=== PATIENT | female | born 1990 | race Caucasian/White ===

== ENCOUNTER → 2018-07-05 12:50 | Outpatient (CLI) | payer OTHER, SELFPAY ==
[2017-03-25 08:30] VITALS: BMI 30.5
--- NOTE | 2018-07-05 12:54 | ECHOD_ITS ---
Reason For Study: Irregular heart beat Procedure This was a 2D Doppler, Color Flow transthoracic echocardiogram. Exam performed in department. Left Ventricle Normal size and thickness. The estimated ejection fraction is 65 %. Normal diastology for age. No regional wall motion abnormalities noted. Right Ventricle Normal size and thickness. Normal systolic function. Atria Normal left atrium. Normal right atrium. Normal atrial septum. Mitral Valve The mitral valve is structurally normal. No prolapse or stenosis seen. Tricuspid Valve Normal tricuspid valve. Trivial tricuspid valve insufficiency. Right ventricular systolic pressure estimated to be 22 mmHg. Aortic Valve Normal aortic valve. Trisinus/trileaflet aortic valve. Pulmonic Valve Normal pulmonic valve. Great Vessels Normal aortic root. Normal arch. Normal inferior vena cava. Inferior vena cava collapse with sniff. Pericardium/Pleural No pericardial effusion. MMode/2D Measurements & Calculations LVIDd: 4.6 cm IVSd: 0.96 cm Ao root diam: 2.2 cm LVIDs: 2.7 cm LVPWd: 0.75 cm RVDd: 3.0 cm FS: 40.2 % LAV(MOD-bp): 25.9 ml LVAd ap4: 25.8 cm2 SV(MOD-sp4): 48.6 ml LAV(MOD-bp) Indexed: 13.2 ml/m2 EDV(MOD-sp4): 74.9 ml LAV(MOD-sp2): 30.8 ml EDV(sp4-el): 75.6 ml LAV(MOD-sp4): 20.2 ml LVAs ap4: 13.7 cm2 ESV(MOD-sp4): 26.3 ml ESV(sp4-el): 27.0 ml EF(MOD-sp4): 64.8 % EF(sp4-el): 64.3 % SV(sp4-el): 48.6 ml LA A4 area: 10.9 cm2 LA dimension(2D): 3.2 cm RA A4 area: 9.6 cm2 Doppler Measurements & Calculations MV E max ethan: 114.3 cm/sec Lat Peak E' Ethan: 13.2 cm/sec Med Peak E' Ethan: 12.5 cm/sec MV A max ethan: 63.1 cm/sec E/E' lat: 8.6 E/E' med: 9.2 MV E/A: 1.8 Ao V2 max: 161.0 cm/sec LV V1 max: 146.2 cm/sec PA V2 max: 126.8 cm/sec Ao max P.4 mmHg LV V1 max P.6 mmHg Ao V2 mean: 115.8 cm/sec Ao mean P.9 mmHg Ao V2 VTI: 31.8 cm TR max ethan: 216.8 cm/sec TR max P.8 mmHg Interpretation Summary The estimated ejection fraction is 65 %. Normal diastology for age. Trivial tricuspid valve insufficiency. Right ventricular systolic pressure estimated to be 22 mmHg. There is no comparison study available. Ordering Physician: Michael Wharton Referring Physician: Michael Wharton Performed By: Deisy Flores, JUAN, RVT
== END ==
PROVIDERS: Family Provider Family Medicine; PCP Family Medicine; Referring Provider Family Medicine; Visit Provider Family Medicine
DX: I49.9 Cardiac arrhythmia, unspecified (principal); I42.9 Cardiomyopathy, unspecified; Z14.8 Genetic carrier of other disease
CPT/HCPCS: 93306

== ENCOUNTER → 2018-07-11 11:11 | Outpatient (CLI) | payer OTHER, SELFPAY ==
[2018-07-11 10:20] VITALS: BMI 30.8
[2018-07-11 11:54] LABS: Absolute Lymphocyte Count 1.51 X10^3/ul (0.83-4.51); Basophil# 0.02 X10^3/uL; Basophil% 0.3 % (0-1); Eosinophil# 0.05 X10^3/uL; Eosinophils% 0.7 % (0-5); Hematocrit 40.8 % (37-47); Hemoglobin 13.3 g/dl (12.0-15.0); Lymphocyte # 1.51 X10^3/ul (4.0); Lymphocyte % 21.6 % (19-41); Mean Corp Hgb Conc 32.6 g/gl (32-36); Mean Corpuscular Hgb 28.1 pg (27.0-32.0); Mean Corpuscular Volume 86.3 fL (81-99); Mean Platelet Vol. 10.9 fl (6.2-12.0); Monocyte# 0.43 X10^3/uL; Monocyte% 6.2 % (0-10); Neutrophil # 4.97 X10^3/uL (2.7-7.7); Neutrophil % 71.1 % (47-70); Platelet Count 235 K/mm3 (150-450); RBC Distribution Width CV 12.5 % (11.6-14.6); RBC Distribution Width SD 38.8 fl (35.1-43.9); Red Blood Count 4.73 M/mm3 (4.2-5.4)
[2018-07-11 11:55] LABS: POSITIVE COUNT NO; POSITIVE DIFFERENTIAL NO; POSITIVE MORPHOLOGY NO
[2018-07-11 12:25] LABS: Pregnancy, Serum, hCG Quali. NEGATIVE Negative (0-9 Nonpreg)
[2018-07-11 12:29] LABS: AST(SGOT) 10 U/L (15-37); Alanine Aminotransfer ALT/SGPT 23 U/L (13-56); Albumin, Serum 3.9 g/dL (3.2-5.0); Alkaline Phosphatase 69 U/L (45-117); Anion Gap 8 (5-15); BUN 10 mg/dL (7-18); BUN/Creat Ratio 11.5 RATIO (10-20); Bilirubin, Direct 0.12 mg/dL (0.00-0.30); Chloride 106 mmol/L (98-107); Cholesterol 245 mg/dL (200); Creatinine, Serum 0.87 mg/dL (0.55-1.02); EST Glomerular Filtration Rate 83 mL/min (>60); Est Glom Filt Rate - Afr Amer 101 mL/min (>60); Globulin 3.9 g/dL (2.2-4.2); Glucose 89 mg/dL (74-106); High Density Lipoprotein 46 mg/dL; Potassium 3.9 mmol/L (3.5-5.1); Protein, Total 7.8 g/dL (6.4-8.2); Sodium Level 142 mmol/L (136-145); T4 Total, Thyroxin 8.7 ug/dL (4.8-13.9); Triglycerides 72 mg/dL; Very Low Density Lipoprotein 14 mg/dL (5-40)
== END ==
PROVIDERS: Family Provider Family Medicine; PCP Family Medicine; Referring Provider Internal Medicine Cardiovascular Disease; Visit Provider Internal Medicine Cardiovascular Disease
DX: R00.2 Palpitations (principal); R06.09 Other forms of dyspnea; I45.2 Bifascicular block; I49.9 Cardiac arrhythmia, unspecified; R94.31 Abnormal electrocardiogram [ECG] [EKG]; Z13.220 Encounter for screening for lipoid disorders; Z82.49 Family history of ischemic heart disease and other diseases of the circulatory system
CPT/HCPCS: 36415; 80048; 80061; 80076; 83735; 84436; 84443; 84703; 85025

== ENCOUNTER → 2018-08-03 09:31 | Outpatient (CLI) | payer SELFPAY ==
[2018-07-11 10:20] VITALS: BMI 30.8
--- NOTE | 2018-08-03 09:33 | STE_ITS ---
Reason For Study: PALPITATIONS, TACHYCARDIA Stress Results Protocol: Stress Echocardiogram Maximum Predicted HR: 194 bpm Target HR: 165 bpm % Maximum Predicted HR: 92 % DurationHeart Rate Stage (mm:ss) (bpm) BP Comment BASELINE 84 120/68 EMILIANO PROTOCOL- STAGE 1 3:00 126 118/70 EMILIANO PROTOCOL- STAGE 2 3:00 160 128/84 EMILIANO PROTOCOL- STAGE 3 1:31 178 / SL SOB, LEGS WEAK RECOVERY 102 108/74 Stress Duration: 7:31 mm:ss Maximum Stress HR: 178 bpm Baseline Echocardiogram Findings The estimated ejection fraction is 65 %. Stress Echo Wall motion Data Resting WM Intermediate WM Stress WM Resting Wall Motion Wall Motion Stress No regional wall motion No regional wall motion abnormalities noted. abnormalities noted. EKG Data The baseline ECG displays normal sinus rhythm. The patient exercised according to the regular Emiliano protocol for a total duration of 7:31. The maximum heart rate attained was 151 beats per minute. This was 77% of maximum predicted heart rate. The patient exercised into stage 3 of the Emiliano protocol. During stress, there were no ST or T wave changes noted to suggest ischemia. No clinical angina was noted. No arrhythmias noted. Interpretation Summary The estimated ejection fraction is 65 %. Normal, adequate, treadmill echocardiogram. Negative for ischemia by EKG and echocardiographic anterior. No anginal symptoms noted. No arrhythmias noted. Appropriate blood pressure response to exercise. Below average exercise capacity for age. Final LVEF is 75%. Test terminated due to leg fatigue. Ordering Physician: Chidi Taylor Referring Physician: Chidi Taylor Performed By: [place] Heredia, JUAN, RVT
== END ==
PROVIDERS: Family Provider Family Medicine; PCP Family Medicine; Referring Provider Internal Medicine Cardiovascular Disease; Visit Provider Internal Medicine Cardiovascular Disease
DX: I45.2 Bifascicular block (principal); I49.9 Cardiac arrhythmia, unspecified; R00.2 Palpitations; R06.09 Other forms of dyspnea; R94.31 Abnormal electrocardiogram [ECG] [EKG]; Z82.49 Family history of ischemic heart disease and other diseases of the circulatory system
CPT/HCPCS: 93017; 93350

== ENCOUNTER → 2018-08-03 | Outpatient (REF) | payer OTHER, SELFPAY ==
[2018-07-11 10:20] VITALS: BMI 30.8
== END | disposition home or self-care (01) ==
LOC: CVS 09:33
PROVIDERS: Family Provider Family Medicine; PCP Family Medicine; Referring Provider Internal Medicine Cardiovascular Disease; Visit Provider Internal Medicine Cardiovascular Disease
DX: I45.2 Bifascicular block (principal); I49.9 Cardiac arrhythmia, unspecified; R94.31 Abnormal electrocardiogram [ECG] [EKG]; Z82.49 Family history of ischemic heart disease and other diseases of the circulatory system; R00.2 Palpitations
CPT/HCPCS: 93270

== ENCOUNTER → 2023-07-08 | Outpatient (CLI) | payer OTHER, SELFPAY ==
--- NOTE | 2023-07-08 12:47 | ECHOD_ITS ---
Reason For Study: Bifascicular Block, SOB Procedure This was a 2D Doppler, Color Flow transthoracic echocardiogram. Exam performed in department. Left Ventricle Normal LV size. Left ventricular systolic function is normal. The left ventricular ejection fraction is 60 %. No regional wall motion abnormalities noted. Right Ventricle Normal RV size. Normal systolic function. Atria Normal left atrium. Normal right atrium. Mitral Valve Normal mitral valve. Tricuspid Valve Normal tricuspid valve. Mild tricuspid valve insufficiency. Aortic Valve Normal aortic valve. Trisinus/trileaflet aortic valve. Pulmonic Valve Normal pulmonic valve. Great Vessels Normal aortic root. The pulmonary artery is normal size. Normal inferior vena cava. Pericardium/Pleural No pericardial effusion. MMode/2D Measurements & Calculations LVIDd: 4.5 cm IVSd: 0.92 cm Ao root diam: 3.0 cm LVIDs: 3.6 cm LVPWd: 0.82 cm LA dimension: 3.4 cm RVDd: 3.1 cm FS: 19.7 % LAV(MOD-bp): 40.4 ml LVAd ap4: 29.4 cm2 SV(MOD-sp4): 58.6 ml LAV(MOD-bp) Indexed: 19.5 ml/m2 LVLd ap4: 7.3 cm LAV(MOD-sp2): 41.5 ml EDV(MOD-sp4): 95.9 ml LAV(MOD-sp4): 38.1 ml EDV(sp4-el): 100.9 ml LVAs ap4: 16.7 cm2 LVLs ap4: 6.2 cm ESV(MOD-sp4): 37.2 ml ESV(sp4-el): 38.3 ml EF(MOD-sp4): 61.2 % EF(sp4-el): 62.1 % SV(sp4-el): 62.7 ml LA A4 area: 15.4 cm2 RA A4 area: 11.1 cm2 TAPSE: 2.0 cm Time Measurements MV dec time: 0.14 sec Doppler Measurements & Calculations MV E max ethan: 102.2 cm/sec Lat Peak E' Ethan: 17.3 cm/sec Med Peak E' Ethan: 15.5 cm/sec MV A max ethan: 73.5 cm/sec E/E' lat: 5.9 E/E' med: 6.6 MV E/A: 1.4 MV V2 max: 122.9 cm/sec MV P1/2t max ethan: 123.4 cm/sec Ao V2 max: 155.1 cm/sec MV max P.1 mmHg MV P1/2t: 50.1 msec Ao max P.6 mmHg MV V2 mean: 63.5 cm/sec MV dec slope: 722.4 cm/sec2 Ao V2 mean: 110.0 cm/sec MV mean P.0 mmHg Ao mean P.5 mmHg MV V2 VTI: 24.3 cm MVA(P1/2t): 4.4 cm2 Ao V2 VTI: 30.2 cm AV (velocity ratio): 0.83 LV V1 max: 129.9 cm/sec PA V2 max: 102.4 cm/sec TR max ethan: 201.0 cm/sec LV V1 max P.8 mmHg PA V2 mean: 75.3 cm/sec TR max P.2 mmHg LV V1 mean P.6 mmHg LV V1 mean: 88.4 cm/sec LV V1 VTI: 25.2 cm ECHO/Echo Complete Interpretation Summary Normal LV size. Left ventricular systolic function is normal. The left ventricular ejection fraction is 60 %. Structurally normal valves. Ordering Physician: Leonard Henley Referring Physician: Leonard Henley Performed By: Madi Fields RCS
--- OUTSIDE RECORDS SUMMARY | 2023-07-08 13:05 | XMS RPT_ITS | CCD ---
Author Name Unknown Address [facility] [address] [place] [address] Organization [facility] Care Team Providers Care Line Supply Name Role Phone JANINE LEVY (MADDIE) Unavailable Unavailable KEVEN GUADARRAMA, DR ADILSON Don Attending Unavailable Medications Current Medications Medication Drug Class(es) Dates Sig (Normalized) Sig (Original) Calcium, Magnesium and Zinc oral tablet (1 source) Start: 06-22-2023 take 1 tablet by mouth once daily Calcium, Magnesium and Zinc oral tablet Dose = 1 tab(s), Oral, qDay, # 30 tab(s), 0 Refill(s) Start Date: 06/22/23 Status: Ordered Partridge Essentials 667 mg oral capsule (1 source) Start: 06-22-2023 take 1 capsule by mouth once daily Partridge Essentials 667 mg oral capsule Dose = 2 cap(s), Oral, qDay, 0 Refill(s) Start Date: 06/22/23 Status: Ordered Multivitamins (1 source) Start: 08-20-2019 take 1 tablet by mouth once daily Multivitamins Dose = 1 tab(s), Oral, qDay, 0 Refill(s) Start Date: 08/20/19 Status: Ordered Problems Problem Classification Problem Date Documented Da te Episodic/Chronic Unclassified (1 source) Breast feeding () (observable entity) 08-20-2019 Results Test Name Value Interpretation Reference Range Facil ity Vital Signs Date Time Vital Sign Value Performing Clinician Faci lity 06-22-2023 12:35-0500 Body height 167.[address] ADILSON BACA DO [facility] 06-22-2023 12:35-0500 Body weight 85.[address] ADILSON BACA DO [facility] Encounters Encounter Date Encounter Type Care Provider Facility Start: 06-22-2023 End: 06-23-[address] ADILSON BACA DO Facility:B Start: 06-22-2023 End: 06-22-[address] ADILSON BACA DO [facility] Start: 04-04-2017 End: 04-11-2017 [facility] Procedures Date Procedure Procedure Detail Performing Clinician Start: 08-20-[address] ADILSON BACA DO Cholecystectomy DR ADILSON WESTFALL DO Payers Date Payer Category Payer Unknown none 1990 Unknown [id number] Social History Date Type Detail Facility Start: 06-22-2023 Tobacco smoking status Never s moked tobacco (finding) [facility] Sex Assigned At Female [facility] Evaluation + Plan note Note Date & Type Note Facility Evaluation + Plan note No data available for this section [facility] Hospital Discharge instructions Note Date & Type Note Facility Hospital Discharge instructions No data available for this section [facility] Progress note Note Date & Type Note Facility Progress note No data available for this section [facility] Summary Purpose Family History No Family History Records Found No data available for this section No Family History Records Found Advance Directives No Advanced Directives Records FoundNo Advanced Directives Records Found Additional Source Comments INFORMATION SOURCE (unrecogn ized section and content) DATE CREATED AUTHOR AUTHOR'S ORGANIZ ATION 06/30/2023 [facility] ([place]) Patient Care team informatio n (unrecognized section and content) Care Team Related Persons Name: SARA LEHMAN Address: Home [address] [place] [address] FOR RECORDS PERTAINING TO PATIENTS WHO ARE OR HAVE BEEN ENROLLED IN A CHEMICAL DEPENDENCY/SUBSTANCEABUSE PROGRAM, SOME INFORMATION MAY BE OMITTED. This clinical summary was aggregated from multiple sources. Caution should be exercised in using it in the provision of clinical care. This summary normalizes information from multiple sources, and as a consequence, information in this document may materially change the coding, format and clinical context of patient data. In addition, data may be omitted in some cases. CLINICAL DECISIONS SHOULD BE BASED ON THE PRIMARY CLINICAL RECORDS. [facility]. provides no warranty or guarantee of the accuracy or completeness of information in this document.
== END | disposition home or self-care (01) ==
PROVIDERS: PCP Family Medicine; Referring Provider Internal Medicine Cardiovascular Disease; Visit Provider Internal Medicine Cardiovascular Disease
DX: R06.09 Other forms of dyspnea (principal); I45.2 Bifascicular block
CPT/HCPCS: 93306